=== PATIENT | male | born 1945 | race Caucasian/White ===

== ENCOUNTER → 2021-05-15 | Outpatient (CLI) | payer MEDICARE ==
[~2021-05-15] MED LIST: AMARYL1 M1 PO; GLIPIZIDE5 MG PO; GLUCOPHAGE1000 MG PO; LISINOPRIL10 M1 PO; METFORMIN1000 MG PO; NICOTINE T21 MG/24 H T; NKHM; PROTONIX20 MG PO; PROTONIX40 M1 PO; SIMVASTATIN10 MG PO; ZANTAC150 MG PO; Zofran4 MG PO
[2021-05-15 16:13] LABS: BASO # 0.1 10*3/uL (0.0-0.1); BASO % 0.8 % (0.0-1.0); EOS # 0.1 10*3/uL (0.0-0.4); EOS % 0.7 % (1.0-4.0); HEMATOCRIT 34.8 % (42.0-52.0); LYMPH # 2.2 10*3/uL (1.3-4.4); LYMPH % 13.7 % (27.0-41.0); MEAN CELL VOLUME 89.9 fl (80.0-94.0); MEAN CORPUSCULAR HGB 27.9 pg (27.0-31.0); MEAN PLATELET VOLUME 10.5 fl (9.6-12.3); MONO # 0.9 10*3/uL (0.1-1.0); MONO % 5.4 % (3.0-9.0); NEUT # 12.7 10*3/uL (2.3-7.9); NEUT % 78.4 % (47.0-73.0); NUCLEATED RED BLOOD CELL 0.2 % (0.0-0.0); PLATELET COUNT AUTOMATED 392 10*3/uL (130-400); RED BLOOD COUNT 3.87 10*6/uL (4.50-5.90); RED CELL DISTRI WIDTH 14.6 % (0-14.5); WHITE BLOOD COUNT 16.2 10*3/uL (4.8-10.8)
[2021-05-15 16:24] LABS: ACT PARTIAL THROMBO TIME 23.2 SECONDS (20.0-32.1)
[2021-05-15 16:30] LABS: ALBUMIN 3.3 gm/dl (3.1-4.5); CREATININE 2.05 mg/dL (0.70-1.30); TOTAL PROTEIN 7.2 gm/dL (6.4-8.2)
[2021-05-15 16:37] LABS: THYROID STIM HORMONE (HS) 4.34 uIU/ml (0.358-4.75)
== END | disposition home or self-care (01) ==
LOC: LAB 15:42
PROVIDERS: ATTEND Family Medicine
DX: R00.0 Tachycardia, unspecified (principal); I49.8 Other specified cardiac arrhythmias; E11.9 Type 2 diabetes mellitus without complications; E78.2 Mixed hyperlipidemia; R31.9 Hematuria, unspecified

== ENCOUNTER 2021-05-22 20:29 | Emergency (ER) | payer MEDICARE ==
[~2021-05-22] VITALS: Ht 172.7 cm; Wt 83.9 kg
[~2021-05-22 20:29] MED LIST changes: -LISINOPRIL10 M1 PO
[2021-05-22] MEDS ORDERED: LISINOPRIL10 M1 PO (20:38)
[2021-05-22 21:05] LABS: BASO # 0.1 10*3/uL (0.0-0.1); BASO % 0.6 % (0.0-1.0); EOS # 0.3 10*3/uL (0.0-0.4); EOS % 1.5 % (1.0-4.0); HEMATOCRIT 30.1 % (42.0-52.0); LYMPH # 3.9 10*3/uL (1.3-4.4); LYMPH % 22.7 % (27.0-41.0); MEAN CELL VOLUME 90.9 fl (80.0-94.0); MEAN CORPUSCULAR HGB 28.1 pg (27.0-31.0); MEAN CORPUSCULAR HGB CONC 30.9 g/dl (33.0-37.0); MEAN PLATELET VOLUME 9.7 fl (9.6-12.3); MONO % 5.8 % (3.0-9.0); NEUT # 11.7 10*3/uL (2.3-7.9); NEUT % 68.2 % (47.0-73.0); PLATELET COUNT AUTOMATED 427 10*3/uL (130-400); RED BLOOD COUNT 3.31 10*6/uL (4.50-5.90); RED CELL DISTRI WIDTH 14.6 % (0-14.5); WHITE BLOOD COUNT 17.2 10*3/uL (4.8-10.8)
[2021-05-22 21:21] LABS: ALBUMIN 3.2 gm/dl (3.1-4.5); CREATININE 1.94 mg/dL (0.70-1.30); POTASSIUM 4.1 mmol/L (3.5-5.1); TOTAL PROTEIN 7.4 gm/dL (6.4-8.2)
[2021-05-22 21:41] LABS: BILIRUBIN 2+ (Negative); BLOOD 1+ (Negative); CLARITY Turbid (Clear); COLOR Red (Yellow); GLUCOSE Trace (Negative); KETONE Trace (Negative); LEUKO ESTERASE 3+ (Negative); NITRITE Positive (Negative); SPECIFIC GRAVITY >= 1.030 (1.001-1.030); UROBILINOGEN 0.2 E.U./dl (0.0-1.0)
[2021-05-22 21:50] LABS: RBC TNTC rbc/hpf (0-2)
[2021-05-23 01:16] VITALS: BP 115/58
== END 2021-05-23 02:46 | disposition short-term general hospital (02) ==
LOC: ED 20:29
PROVIDERS: Physician Assistant
DX: A41.9 Sepsis, unspecified organism (principal); R65.20 Severe sepsis without septic shock; N39.0 Urinary tract infection, site not specified; Z79.899 Other long term (current) drug therapy

== ENCOUNTER 2021-07-23 14:30 | Emergency (ER) | payer MEDICARE ==
[~2021-07-23] VITALS: Wt 82.1 kg
[~2021-07-23 14:30] MED LIST changes: +LISINOPRIL10 M1 PO
[2021-07-23 15:35] LABS: BASO # 0.1 10*3/uL (0.0-0.1); BASO % 0.5 % (0.0-1.0); EOS # 0.2 10*3/uL (0.0-0.4); EOS % 1.1 % (1.0-4.0); HEMATOCRIT 28.6 % (42.0-52.0); LYMPH # 1.9 10*3/uL (1.3-4.4); LYMPH % 10.8 % (27.0-41.0); MEAN CELL VOLUME 84.6 fl (80.0-94.0); MEAN CORPUSCULAR HGB 25.7 pg (27.0-31.0); MEAN CORPUSCULAR HGB CONC 30.4 g/dl (33.0-37.0); MEAN PLATELET VOLUME 9.7 fl (9.6-12.3); MONO # 0.8 10*3/uL (0.1-1.0); MONO % 4.8 % (3.0-9.0); NEUT # 14.1 10*3/uL (2.3-7.9); NEUT % 81.8 % (47.0-73.0); PLATELET COUNT AUTOMATED 440 10*3/uL (130-400); RED BLOOD COUNT 3.38 10*6/uL (4.50-5.90); WHITE BLOOD COUNT 17.2 10*3/uL (4.8-10.8)
[2021-07-23 15:49] LABS: INTERNATIONAL NORM RATIO 0.9 (2.0-3.5)
[2021-07-23 15:54] LABS: CREATININE 1.66 mg/dL (0.70-1.30); POTASSIUM 4.3 mmol/L (3.5-5.1); TOTAL PROTEIN 7.3 gm/dL (6.4-8.2)
[2021-07-24 11:11] VITALS: BP 155/64
== END 2021-07-24 12:17 | disposition short-term general hospital (02) ==
LOC: ED 14:30
PROVIDERS: Physician Assistant
DX: N13.30 Unspecified hydronephrosis (principal); R91.8 Other nonspecific abnormal finding of lung field; R19.09 Other intra-abdominal and pelvic swelling, mass and lump; Z88.1 Allergy status to other antibiotic agents; Z79.899 Other long term (current) drug therapy

== ENCOUNTER 2021-08-12 14:08 | Emergency (ER) | payer MEDICARE ==
[~2021-08-12] VITALS: Ht 172.7 cm; Wt 84.8 kg
[2021-08-12 14:16] VITALS: BP 138/60
== END 2021-08-12 14:53 | disposition home or self-care (01) ==
LOC: ED 14:08
DX: E11.65 Type 2 diabetes mellitus with hyperglycemia (principal); Z79.4 Long term (current) use of insulin; E11.9 Type 2 diabetes mellitus without complications; K21.9 Gastro-esophageal reflux disease without esophagitis; Z88.1 Allergy status to other antibiotic agents; Z79.899 Other long term (current) drug therapy

== ENCOUNTER 2021-09-23 15:18 | Emergency (ER) | payer MEDICARE ==
[~2021-09-23] VITALS: Ht 172.7 cm; Wt 68.0 kg
[2021-09-23 15:23] VITALS: BP 132/82
== END 2021-09-23 18:15 | disposition home or self-care (01) ==
LOC: ED 15:18
DX: K59.00 Constipation, unspecified (principal); Z79.899 Other long term (current) drug therapy; Z88.1 Allergy status to other antibiotic agents

== ENCOUNTER 2021-09-28 12:18 | Emergency (ER) | payer MEDICARE ==
[~2021-09-28] VITALS: Ht 172.7 cm; Wt 81.6 kg
[2021-09-28 12:51] LABS: HEMATOCRIT 30.1 % (42.0-52.0); MANUAL DIFF REFLEX YES; MEAN CELL VOLUME 80.7 fl (80.0-94.0); MEAN CORPUSCULAR HGB 24.9 pg (27.0-31.0); MEAN CORPUSCULAR HGB CONC 30.9 g/dl (33.0-37.0); PLATELET COUNT AUTOMATED 552 10*3/uL (130-400); RED BLOOD COUNT 3.73 10*6/uL (4.50-5.90); WHITE BLOOD COUNT 24.6 10*3/uL (4.8-10.8)
[2021-09-28 13:02] LABS: ACT PARTIAL THROMBO TIME 26.5 SECONDS (20.0-32.1)
[2021-09-28 13:05] LABS: BACTERIA 4+; BILIRUBIN Negative (Negative); BLOOD 3+ (Negative); CLARITY Turbid (Clear); COLOR Yellow (Yellow); GLUCOSE Negative (Negative); KETONE Negative (Negative); NITRITE Negative (Negative); PH 8.5 (4.5-8.0); RBC TNTC rbc/hpf (0-2); SPECIFIC GRAVITY 1.015 (1.001-1.030); UROBILINOGEN 0.2 E.U./dl (0.0-1.0); WBC TNTC wbc/hpf (0-5)
[2021-09-28 13:06] LABS: LEUKO ESTERASE 2+ (Negative)
[2021-09-28 13:07] LABS: CREATININE 1.55 mg/dL (0.70-1.30); POTASSIUM 4.1 mmol/L (3.5-5.1); TOTAL PROTEIN 7.1 gm/dL (6.4-8.2)
[2021-09-28 13:18] LABS: PLATELET SUFFICIENCY HIGH (NORMAL); POLYCHROMASIA SLIGHT; SCHISTOCYTES FEW; TARGET CELLS FEW; TOTAL CELLS COUNTED 100 #CELLS; TOXIC GRANULATION SLIGHT
[2021-09-28 14:23] VITALS: BP 153/78
== END 2021-09-28 15:32 | disposition home or self-care (01) ==
LOC: ED 12:18
PROVIDERS: Emergency Medicine
DX: G89.29 Other chronic pain (principal); C67.9 Malignant neoplasm of bladder, unspecified; E11.9 Type 2 diabetes mellitus without complications; K21.9 Gastro-esophageal reflux disease without esophagitis; Z88.1 Allergy status to other antibiotic agents; Z79.899 Other long term (current) drug therapy

== ENCOUNTER 2021-10-12 14:46 | Inpatient (IN) | payer OTHER, MEDICARE ==
[~2021-10-12] VITALS: Ht 170.1 cm; Wt 80.5 kg
[2021-10-12 15:00] VITALS: BP 79/49
[2021-10-12 15:16] LABS: HEMATOCRIT 21.3 % (42.0-52.0); MEAN CELL VOLUME 81.9 fl (80.0-94.0); MEAN CORPUSCULAR HGB 24.6 pg (27.0-31.0); PLATELET COUNT AUTOMATED 510 10*3/uL (130-400); RED CELL DISTRI WIDTH 17.2 % (0-14.5)
[2021-10-12 15:19] LABS: MANUAL DIFF REFLEX YES
[2021-10-12 15:27] VITALS: BP 120/53
[2021-10-12 15:27] LABS: ACT PARTIAL THROMBO TIME 25.5 SECONDS (20.0-32.1)
[2021-10-12 15:35] LABS: CREATININE 1.91 mg/dL (0.70-1.30); POTASSIUM 4.6 mmol/L (3.5-5.1); TOTAL PROTEIN 5.7 gm/dL (6.4-8.2)
[2021-10-12 15:45] VITALS: BP 96/51
[2021-10-12 16:08] LABS: BASOPHILS 1 % (0-1); TOTAL CELLS COUNTED 100 #CELLS
[2021-10-12 16:10] LABS: BLASTS 1 % (0-0); PLATELET SUFFICIENCY HIGH (NORMAL); TOXIC GRANULATION SLIGHT
[2021-10-12 16:11] LABS: MICROCYTOSIS SLIGHT
[2021-10-12 16:22] VITALS: BP 84/49
[2021-10-12 18:15] VITALS: BP 99/53
[2021-10-12] MEDS ORDERED: OXYCODONE HCL5 MG PO (18:37)
[2021-10-12] MEDS ORDERED: LANTUS SOL100 UNIT/1 SC (18:38)
[2021-10-12] MEDS ORDERED: LORAZEPAM0.5 MG PO (18:40)
[2021-10-12] MEDS ORDERED: SENNOSIDES-DOC1 EACH PO (18:44)
[2021-10-12 20:00] VITALS: BP 109/50
[2021-10-13] VITALS: BP 95/51
[2021-10-13 08:00] VITALS: BP 122/47
[2021-10-13 12:00] VITALS: BP 101/56
[2021-10-13 16:00] VITALS: BP 117/85
[2021-10-13 20:00] VITALS: BP 104/40
[2021-10-14] VITALS: BP 107/45
[2021-10-14 08:00] VITALS: BP 100/46
[2021-10-14 16:00] VITALS: BP 124/52
[2021-10-14 20:00] VITALS: BP 123/84
[2021-10-15] VITALS: BP 119/50
== END 2021-10-15 06:20 | DRG 686 ==
LOC: ED 14:46 → EDHOLD 17:05 → 4E 17:05
PROVIDERS: Emergency Medicine; ADMIT Internal Medicine; ATTEND Internal Medicine
DX: C67.9 Malignant neoplasm of bladder, unspecified (principal); E43 Unspecified severe protein-calorie malnutrition; C34.90 Malignant neoplasm of unspecified part of unspecified bronchus or lung; C64.9 Malignant neoplasm of unspecified kidney, except renal pelvis; K92.2 Gastrointestinal hemorrhage, unspecified; E87.2 Acidosis; Z51.5 Encounter for palliative care; E78.5 Hyperlipidemia, unspecified; D64.9 Anemia, unspecified; K21.9 Gastro-esophageal reflux disease without esophagitis; E11.65 Type 2 diabetes mellitus with hyperglycemia; Z79.4 Long term (current) use of insulin; Z82.49 Family history of ischemic heart disease and other diseases of the circulatory system; Z87.891 Personal history of nicotine dependence; Z79.899 Other long term (current) drug therapy; Z68.27 Body mass index [BMI] 27.0-27.9, adult